=== PATIENT | female | born 1990 | race Caucasian/White ===

== ENCOUNTER → 2016-09-28 | Outpatient (REF) | payer OTHER | LOC: M LAB REF 16:39 | PROVIDERS: ATTEND Physician Assistant | DX: R30.0 Dysuria (principal) ==

== ENCOUNTER → 2016-11-25 | Outpatient (CLI) | payer OTHER ==
--- NOTE | 2016-11-25 15:05 | REP ---
UNILATERAL LEFT BREAST WITH LEFT BREAST ULTRASOUND: The patient has a history of left breast pain and fullness. MLO and CC views of the left breast demonstrate mild scattered fibroglandular tissue without evidence of a mass or clustered microcalcifications. Real-time sonographic evaluation of the left breast is performed laterally showing no cystic or solid nodule. No nodule is seen in the left axilla sonographically as well. IMPRESSION: ACR 2 benign. No mass or clustered microcalcifications in the left breast. No mass lateral left breast sonographically. Clinical correlation and followup recommended. BI-RADS/ACR category 2 mammogram. Benign finding(s). Routine annual screening mammography (for women over age 40). The patient states she/he had a clinical breast exam in September 2016. Patient letter requested is patient letter M2. Signed by Des Kunz MD 11/25/2016 07:54 P
== END ==
LOC: M RAD 11:45
PROVIDERS: ATTEND Internal Medicine
DX: N64.4 Mastodynia (principal)

== ENCOUNTER → 2017-04-13 | Outpatient (REF) | payer OTHER | LOC: M LAB REF 13:16 | DX: J02.9 Acute pharyngitis, unspecified (principal) | CPT/HCPCS: 87081 ==

== ENCOUNTER → 2017-05-30 | Outpatient (REF) | payer OTHER | LOC: M LAB REF 12:30 | DX: J06.9 Acute upper respiratory infection, unspecified (principal) | CPT/HCPCS: 87081 ==